=== PATIENT | male | born 1970 | race Caucasian/White ===

== ENCOUNTER 2024-10-11 11:58 | Inpatient (IN) | payer OTHER ==
[2024-10-11 12:19] VITALS: BMI 28.3
[2024-10-11] MEDS ORDERED: chlordiazePOXIDE HCL 25 MG CAPSULE PO PRN (12:29)
[2024-10-11] MEDS ORDERED: POLYETHYLENE GLYCOL (HEALTHYLAX) 3350 17 GM PACKET PO PRN (12:35)
[2024-10-11] MEDS ORDERED: IBUPROFEN 400 MG TABLET (FP) PO PRN (12:35)
[2024-10-11] MEDS ORDERED: guaiFENesin 600 MG TABLET.ER (FP) PO PRN (12:35)
[2024-10-11] MEDS ORDERED: DICYCLOMINE HCL 10 MG CAPSULE PO PRN (12:35)
[2024-10-11] MEDS ORDERED: LOPERAMIDE HCL 2 MG CAPSULE PO PRN (12:35)
[2024-10-11] MEDS ORDERED: BENZONATATE 200 MG CAPSULE PO PRN (12:35)
[2024-10-11] MEDS ORDERED: ACETAMINOPHEN 325 MG TABLET (FP) PO PRN (12:35)
[2024-10-11] MEDS ORDERED: hydrOXYzine PAMOATE 25 MG CAPSULE (FP) PO PRN (12:35)
[2024-10-11] MEDS ORDERED: BENZOCAINE/MENTHOL (CHLORASEPTIC ) LOZENGE MM PRN (12:35)
[2024-10-11] MEDS ORDERED: IBUPROFEN 600 MG TABLET (FP) PO PRN (12:35)
[2024-10-11] MEDS ORDERED: MAGNESIUM HYDROX 2400MG/30ML ORAL SUSPENSION 30 ML CUP PO PRN (12:35)
[2024-10-11] MEDS ORDERED: NALOXONE (NARCAN) HCL 4 MG/0.1 ML SPRAY NS PRN (12:35)
[2024-10-11] MEDS ORDERED: P-EPHED 60MG/TRIPROLIDI 2.5MG TABLET PO PRN (12:35)
[2024-10-11] MEDS ORDERED: ONDANSETRON *ODT* 4 MG TABLET SL PRN (12:35)
[2024-10-11] MEDS ORDERED: MAG HYDROX/AL HYDROX/SIMETH 30 ML UNIT-DOSE CUP PO PRN (12:35)
[2024-10-11] MEDS ORDERED: levETIRAcetam 500 MG TABLET (FP) PO ONE (13:26)
[2024-10-11] MEDS ORDERED: chlordiazePOXIDE HCL 25 MG CAPSULE ONE (13:26)
[2024-10-11] MEDS: chlordiazePOXIDE HCL 25 MG CAPSULE PO ONE (13:31)
[2024-10-11] MEDS: levETIRAcetam 500 MG TABLET (FP) PO SCH (13:31)
[2024-10-11] MEDS ORDERED: PRIMIDONE 50 MG TABLET PO SCH (14:15)
[2024-10-11] MEDS: PRIMIDONE 50 MG TABLET PO SCH (17:33)
[2024-10-11] MEDS: chlordiazePOXIDE HCL 25 MG CAPSULE PO SCH (17:33)
[2024-10-11] MEDS ORDERED: propRANOLol HCL 10 MG TABLET PO ONE (22:00)
[2024-10-11] MEDS: MELATONIN 5 MG TABLETS PO SCH (22:33)
[2024-10-11] MEDS: THIAMINE 100 MG TABLET PO SCH (22:33)
[2024-10-11] MEDS: VITAMINS A AND D TOPICAL OINTMENT TP SCH (23:10)
[2024-10-12 09:30] LABS: CHLORIDE 105 mmol/L (98-107); POTASSIUM 3.7 mmol/L (3.5-5.1); SODIUM 139 mmol/L (136-145)
[2024-10-12 09:50] LABS: HEMOGLOBIN 12.9 GM/dL (11.7-16.9); MCHC 32.3 g/dl (32.0-35.9); MEAN CELL VOLUME 89.7 fl (80-96); MEAN PLT VOLUME 9.6 fl (7.5-11.1); PLATELET COUNT 122 10^3/uL (134-434); RBC 4.46 M/mm3 (4.00-5.60); RDW 14.4 % (11.9-15.9); WHITE BLOOD COUNT 5.6 K/mm3 (4.0-10.0)
[2024-10-12] MEDS ORDERED: propRANOLol HCL 10 MG TABLET PO SCH (10:00)
[2024-10-12 10:04] LABS: SGPT/ALT 62 U/L (13-61)
[2024-10-12 10:05] LABS: BILIRUBIN,TOTAL 0.8 mg/dL (0.2-1)
[2024-10-12] MEDS: PRENATAL VITAMINS W/ FOLIC ACID TABLET (FP) PO SCH (10:06)
[2024-10-12] MEDS: FOLIC ACID 1 MG TABLET (FP) PO SCH (10:07)
[2024-10-12] MEDS: DAPSONE 25 MG TABLET PO SCH (10:07)
[2024-10-12 10:09] LABS: ALBUMIN 3.6 g/dl (3.4-5.0)
[2024-10-12 10:11] LABS: BLOOD UREA NITROGEN 14.5 mg/dL (7-18); GLUCOSE,RANDOM 119 mg/dL (74-106)
[2024-10-12 10:12] LABS: ANION GAP 9 mmol/L (4-13); CALCIUM 9.3 mg/dL (8.5-10.1); CO2 26 mmol/L (21-32); SGOT/AST 58 U/L (15-37)
[2024-10-12 10:13] LABS: CREATININE 0.9 mg/dL (0.55-1.3); TOT PROT 7.5 g/dl (6.4-8.2)
[2024-10-12 10:14] LABS: ALK PHOS 65 U/L (45-117)
[2024-10-12] MEDS: BUPRENORPHINE/NALOXONE 2 MG/0.5 MG FILM PACKET SL ONE (11:38)
[2024-10-12] MEDS: BUPRENORPHINE/NALOXONE 4 MG/1 MG FILM PACKET SL ONE (14:21)
[2024-10-13] MEDS: chlordiazePOXIDE HCL 25 MG CAPSULE PO SCH (05:38)
[2024-10-13] MEDS: BISMUTH SUBSALICYLATE 524 MG/30 ML PO PRN (06:36)
[2024-10-13] MEDS: BUPRENORPHINE/NALOXONE 8 MG/2 MG FILM PACKET SL SCH (10:31)
[2024-10-14] MEDS ORDERED: chlordiazePOXIDE HCL 10 MG CAPSULE PO PRN
[2024-10-14] MEDS: chlordiazePOXIDE HCL 10 MG CAPSULE PO SCH (05:35)
[2024-10-15] MEDS: chlordiazePOXIDE HCL 10 MG CAPSULE PO SCH (05:27)
[2024-10-15] MEDS: METHOCARBAMOL 500 MG TABLET PO PRN (17:25)
[2024-10-16] MEDS: chlordiazePOXIDE HCL 10 MG CAPSULE PO ONE (06:00)
[2024-10-16 08:53] VITALS: BP 103/67; PULSE 88; RESP 18; TEMP 97.1
== END 2024-10-16 10:58 | disposition other institution (70) | DRG 773 ==
LOC: YASAS 11:58 → Y3N 13:17
PROVIDERS: ADMIT Allergy & Immunology; ATTEND Allergy & Immunology
PROC: HZ2ZZZZ Detoxification Services for Substance Abuse Treatment (ICD-10-PCS; principal; 2024-10-11)
DX: F10.230 Alcohol dependence with withdrawal, uncomplicated (principal); F11.20 Opioid dependence, uncomplicated; F19.24 Other psychoactive substance dependence with psychoactive substance-induced mood disorder; G40.909 Epilepsy, unspecified, not intractable, without status epilepticus; I10 Essential (primary) hypertension; Z86.19 Personal history of other infectious and parasitic diseases; Z56.0 Unemployment, unspecified; Z59.00 Homelessness unspecified
CPT/HCPCS: 36415; 80053; 80305; 80307; 85027; 86780; 87811; 93005; 93010

== ENCOUNTER 2024-10-16 11:03 | Inpatient (IN) | payer OTHER ==
[2024-10-16] MEDS ORDERED: NALOXONE HCL 0.4 MG/ML VIAL IVPUSH PRN (12:38)
[2024-10-16] MEDS ORDERED: BENZONATATE 200 MG CAPSULE PO PRN (12:38)
[2024-10-16] MEDS ORDERED: MAG HYDROX/AL HYDROX/SIMETH 30 ML UNIT-DOSE CUP PO PRN (12:38)
[2024-10-16] MEDS ORDERED: guaiFENesin 600 MG TABLET.ER (FP) PO PRN (12:38)
[2024-10-16] MEDS ORDERED: hydrOXYzine PAMOATE 25 MG CAPSULE (FP) PO PRN (12:38)
[2024-10-16] MEDS ORDERED: IBUPROFEN 600 MG TABLET (FP) PO PRN (12:38)
[2024-10-16] MEDS ORDERED: NALOXONE (NARCAN) HCL 4 MG/0.1 ML SPRAY NS PRN (12:38)
[2024-10-16] MEDS ORDERED: METHOCARBAMOL 500 MG TABLET PO PRN (12:38)
[2024-10-16] MEDS ORDERED: IBUPROFEN 400 MG TABLET (FP) PO PRN (12:38)
[2024-10-16] MEDS ORDERED: ACETAMINOPHEN 325 MG TABLET (FP) PO PRN (12:38)
[2024-10-16] MEDS ORDERED: BENZOCAINE/MENTHOL (CHLORASEPTIC ) LOZENGE MM PRN (12:38)
[2024-10-16] MEDS ORDERED: POLYETHYLENE GLYCOL (HEALTHYLAX) 3350 17 GM PACKET PO PRN (12:38)
[2024-10-16] MEDS ORDERED: MAGNESIUM HYDROX 2400MG/30ML ORAL SUSPENSION 30 ML CUP PO PRN (12:38)
[2024-10-16] MEDS ORDERED: LOPERAMIDE HCL 2 MG CAPSULE PO PRN (12:38)
[2024-10-16 13:57] VITALS: BMI 28.0
[2024-10-16] MEDS: PRIMIDONE 50 MG TABLET PO SCH (14:50)
[2024-10-16] MEDS: MELATONIN 5 MG TABLETS PO SCH (22:53)
[2024-10-16] MEDS: THIAMINE 100 MG TABLET PO SCH (22:54)
[2024-10-17] MEDS: FOLIC ACID 1 MG TABLET (FP) PO SCH (10:15)
[2024-10-17] MEDS: BUPRENORPHINE/NALOXONE 8 MG/2 MG FILM PACKET SL SCH (10:15)
[2024-10-17] MEDS: PRENATAL VITAMINS W/ FOLIC ACID TABLET (FP) PO SCH (10:15)
[2024-10-17] MEDS: THIAMINE 100 MG TABLET PO SCH (10:16)
[2024-10-17] MEDS ORDERED: PRIMIDONE 50 MG TABLET PO SCH (14:00)
[2024-10-17] MEDS: NALOXONE (NYS OPIOID OVERDOSE PROGRAM) 4 MG/0.1 ML SPRAY NS PRN (14:44)
[2024-10-17 15:08] VITALS: BP 152/86; PULSE 76; RESP 18; TEMP 97.8
== END 2024-10-17 14:58 | disposition home or self-care (01) | DRG 772 ==
LOC: YASAS 11:03 → Y3NR 11:04 → Y5N 10-17 12:14
PROVIDERS: ADMIT Psychiatry & Neurology Pain Medicine; ATTEND Psychiatry & Neurology Pain Medicine
PROC: HZ42ZZZ Group Counseling for Substance Abuse Treatment, Cognitive-Behavioral (ICD-10-PCS; principal; 2024-10-16)
DX: F10.20 Alcohol dependence, uncomplicated (principal); F19.24 Other psychoactive substance dependence with psychoactive substance-induced mood disorder; F41.0 Panic disorder [episodic paroxysmal anxiety]; G40.909 Epilepsy, unspecified, not intractable, without status epilepticus
CPT/HCPCS: 36415; 86803; 87522